=== PATIENT | female | born 1970 | race Caucasian/White ===

== ENCOUNTER 2025-02-06 14:03 | Outpatient (OUT) | payer OTHER, SELFPAY ==
--- NOTE | 2025-02-06 15:39 | PM.CN ---
Consult Note: HPI Data of Consult Patient: new to practice Consult date: 02/06/25 Requesting Physician: Johnathon Jackson MD Primary Care Provider: Non-Staff Physician, Consult Narrative Reason for consult: right facial pain Narrative: 54yof who presents for evaluation. worsening right facial pain. has tried carbamazepine, without significant benefit. has had occipital blocks and cervical rfas, with limited benefit. denies adverse med side effects. cc:: CC: Johnathon Jackson MD Review of Systems ROS Status of ROS 10 or more systems reviewed and unremarkable except as noted in history and below [facility] Medical History Complication of reattached finger ?T87.0X9 - Complications of reattached (part of) unspecified upper extremity (ICD-10) Carpal tunnel syndrome ?G56.00 - Carpal tunnel syndrome, unspecified upper limb (ICD-10) Obesity (BMI 35.0-39.9 without comorbidity) ?E66.9 - Obesity, unspecified (ICD-10) Surgical History History of tonsillectomy and adenoidectomy ?Z90.89 - Acquired absence of other organs (ICD-10) History of bladder surgery ?Z98.890 - Other specified postprocedural states (ICD-10) H/O tubal ligation ?Z98.51 - Tubal ligation status (ICD-10) History of hysterectomy ?Z90.710 - Acquired absence of both cervix and uterus (ICD-10) Meds Home Medications and Allergies Home Medications ?Medication ?Instructions ?Recorded ?Confirmed ?Type oxcarbazepine 150 mg tablet 450 mg PO BID 02/06/25 02/06/25 History simvastatin 40 mg tablet 40 mg PO QPM 02/06/25 02/06/25 History Allergies Allergy/AdvReac Type Severity Reaction Status Date / Time cefaclor (From [facility]) Allergy Unknown Unknown Verified 02/06/25 15:22 Exam Narrative Exam Narrative: Psych-alert and oriented x 3.? Attentive and appropriate, constitutionally normal, displays normal mood and affect per situation.? There are no obvious deficits in memory, reasoning, or intellect.? Skin-no obvious rashes, bruising, or erythema noted to the patient's area of pain. Extremities-upper extremities are warm with minimal edema and palpable pulses. Cervical- tenderness to palpation noted in the cervical spine and paraspinal musculature.? Coordination remains intact.? Gait remains non-antalgic.? Assessment and Plan Assessment and Plan (1) Trigeminal neuralgia: Plan 54yof who presents for evaluation. failed conservative measures, as noted. given failure to respond to other conservative measures, including medications and other interventions, prudent to attempt right trigeminal nerve block under fluoroscopic guidance. will do with IVCS. she is in agreement. meds reviewed, no changes. follow up after procedure.
== END 2025-02-06 14:04 | disposition home or self-care (01) ==
PROVIDERS: Visit Provider Anesthesiology
DX: G50.0 Trigeminal neuralgia (principal)
CPT/HCPCS: G0463